=== PATIENT | female | born 1975 | race Two or more races ===

== ENCOUNTER 2016-09-15 23:25 | Inpatient (IN) | payer OTHER ==
[~2016-09-15] VITALS: Ht 165.1 cm; Wt 98.5 kg
[2016-09-15] MEDS ORDERED: VITAMINS (23:44)
[2016-09-15] MEDS ORDERED: CLON0.5T20 PO (23:44)
[2016-09-15] MEDS ORDERED: VENL75CA PO (23:44)
[2016-09-15] MEDS ORDERED: MORPHINE SULFATE 4 MG/ML, 1ML ONE (23:59)
[2016-09-15] MEDS ORDERED: ONDANSETRON 2MG/ML, 2ML ONE (23:59)
[2016-09-15] MEDS ORDERED: KETOROLAC 30 MG/1 ML ONE (23:59)
[2016-09-15] MEDS ORDERED: ACETAMINOPHEN 325 MG TABLET ONE (23:59)
[2016-09-16] MEDS ORDERED: SODIUM CHLORIDE FLUSH 10ML SYR IVF ONE
[2016-09-16] MEDS ORDERED: ACETAMINOPHEN 325 MG TABLET PO ONE
[2016-09-16] MEDS ORDERED: ONDANSETRON 2MG/ML, 2ML IVPush ONE
[2016-09-16] MEDS ORDERED: KETOROLAC 30 MG/1 ML IVPush ONE
[2016-09-16 00:24] LABS: HEMOGLOBIN 11.9 g/dL (11.7-16.4)
[2016-09-16] MEDS: MORPHINE SULFATE 4 MG/ML, 1ML IVPush PRN ×3 (00:29→23:50)
[2016-09-16] MEDS ORDERED: SODIUM CHLORIDE 0.9% 1,000ML IVBOLUS ONE ×3 (00:30→01:30)
[2016-09-16 00:34] LABS: DAU SCREEN DISCLAIMER
[2016-09-16 00:38] LABS: ASPARTATE AMINO TRANSFERASE 17 U/L (15-37); BLOOD UREA NITROGEN 10 mg/dL (7-18)
[2016-09-16] MEDS ORDERED: POTASSIUM CHLORIDE 20 MEQ TAB.ER.PRT ONE (00:47)
[2016-09-16] MEDS ORDERED: CEFTRIAXONE PMX 1GM/50ML 50 ML ONE (00:47)
[2016-09-16] MEDS ORDERED: POTASSIUM CHLORIDE 20 MEQ TAB.ER.PRT PO ONE (01:00)
[2016-09-16] MEDS ORDERED: CEFTRIAXONE PMX 1GM/50ML 50 ML IV ONE (01:00)
[2016-09-16] MEDS ORDERED: SODIUM CHLORIDE 0.9% 1,000 ML IV ONE (02:39)
[2016-09-16] MEDS ORDERED: MORPHINE SULFATE 4 MG/ML, 1ML IVPush PRN (03:00)
[2016-09-16] MEDS ORDERED: ONDANSETRON 2MG/ML, 2ML IVPush PRN (03:00)
[2016-09-16] MEDS ORDERED: MORPHINE SULFATE 4 MG/ML, 1ML ONE (03:03)
[2016-09-16] MEDS ORDERED: OMNIPAQUE 350 MG/ML, 100ML BOTTLE ONE (03:26)
[2016-09-16] MEDS ORDERED: SODIUM CHLORIDE 0.9% 1,000 ML IV SCH (04:09)
[2016-09-16 04:24] VITALS: BP 115/75
[2016-09-16] MEDS ORDERED: BISACODYL 10 MG SUPP PR PRN (04:30)
[2016-09-16] MEDS ORDERED: ACETAMINOPHEN 325 MG TABLET PO PRN (04:30)
[2016-09-16] MEDS ORDERED: ONDANSETRON 2MG/ML, 2ML IVP PRN (04:30)
[2016-09-16] MEDS: CEFTRIAXONE PMX 1GM/50ML 50 ML IV SCH (04:30)
[2016-09-16] MEDS ORDERED: POLYETHYLENE GLYCOL 17 GM PACKET PO PRN (04:30)
[2016-09-16 04:32] VITALS: BP 115/75
[2016-09-16] MEDS: ENOXAPARIN 40 MG/0.4 ML SQ SCH (05:01)
[2016-09-16 05:57] LABS: HEMOGLOBIN 11.4 g/dL (11.7-16.4)
[2016-09-16 06:16] LABS: ASPARTATE AMINO TRANSFERASE 20 U/L (15-37); BLOOD UREA NITROGEN 11 mg/dL (7-18)
[2016-09-16 06:55] VITALS: BP 121/78
[2016-09-16] MEDS: HYDROcodone/APAP 5/325 TABLET PO PRN ×4 (07:46→18:02)
[2016-09-16] MEDS: POTASSIUM CHLORIDE 20 MEQ TAB.ER.PRT PO SCH ×3 (07:46→17:50)
[2016-09-16] MEDS: VENLAFAXINE 75 MG CAP ER PO SCH (07:46)
[2016-09-16] MEDS ORDERED: POTASSIUM CHLORIDE 40 MEQ in SODIUM CHLORIDE 0.9% 1,000 ML IV SCH ×2 (08:30→09:37)
[2016-09-16 14:13] VITALS: BP 118/79
[2016-09-16] MEDS: POTASSIUM CHLORIDE 10 MEQ in SODIUM CHLORIDE 0.9% 1,000 ML IV SCH (17:53)
[2016-09-16 20:00] VITALS: BP 130/84
[2016-09-16 23:35] VITALS: BP 149/86
[2016-09-17 03:10] VITALS: BP 149/83
[2016-09-17] MEDS: HYDROcodone/APAP 5/325 TABLET PO PRN ×3 (03:42→20:56)
[2016-09-17] MEDS: CEFTRIAXONE PMX 1GM/50ML 50 ML IV SCH (04:00)
[2016-09-17] MEDS ORDERED: POTASSIUM CHLORIDE 40 MEQ in SODIUM CHLORIDE 0.9% 1,000 ML IV SCH (04:09)
[2016-09-17] MEDS: ENOXAPARIN 40 MG/0.4 ML SQ SCH (04:30)
[2016-09-17 05:43] LABS: BLOOD UREA NITROGEN 10 mg/dL (7-18)
[2016-09-17] MEDS: POTASSIUM CHLORIDE 10 MEQ in SODIUM CHLORIDE 0.9% 1,000 ML IV SCH ×2 (07:49→20:56)
[2016-09-17 08:00] VITALS: BP 147/93
[2016-09-17] MEDS: VENLAFAXINE 75 MG CAP ER PO SCH (09:00)
[2016-09-17] MEDS: MORPHINE SULFATE 4 MG/ML, 1ML IVPush PRN (10:32)
[2016-09-17 13:55] VITALS: BP 136/87
[2016-09-17 16:00] VITALS: BP 136/87
[2016-09-17 20:14] VITALS: BP 161/91
[2016-09-17 23:29] VITALS: BP 168/92
[2016-09-18 03:40] VITALS: BP 162/108
[2016-09-18] MEDS: CEFTRIAXONE PMX 1GM/50ML 50 ML IV SCH (03:55)
[2016-09-18] MEDS: HYDROcodone/APAP 5/325 TABLET PO PRN ×2 (04:07→10:35)
[2016-09-18] MEDS: ENOXAPARIN 40 MG/0.4 ML SQ SCH (04:08)
[2016-09-18 05:32] LABS: HEMOGLOBIN 10.8 g/dL (11.7-16.4)
[2016-09-18 05:42] LABS: BLOOD UREA NITROGEN 11 mg/dL (7-18)
[2016-09-18 06:52] VITALS: BP 160/107
[2016-09-18] MEDS: VENLAFAXINE 75 MG CAP ER PO SCH (09:00)
[2016-09-18] MEDS: POTASSIUM CHLORIDE 10 MEQ in SODIUM CHLORIDE 0.9% 1,000 ML IV SCH (10:03)
[2016-09-18] MEDS ORDERED: CEFD300C2 PO (10:10)
== END 2016-09-18 14:05 | disposition home or self-care (01) | DRG 871 ==
LOC: ED 09-16 01:44 → EDIP 09-16 02:40 → 5SO 09-16 04:09 → 4WST 09-16 16:55 → DCLOUNGE 09-18 13:55
PROVIDERS: ADMIT Internal Medicine; ATTEND Internal Medicine
PROC: 0T9B70Z Drainage of Bladder with Drainage Device, Via Natural or Artificial Opening (ICD-10-PCS; principal; 2016-09-16)
DX: A41.9 Sepsis, unspecified organism (principal); E43 Unspecified severe protein-calorie malnutrition; N10 Acute pyelonephritis; E87.1 Hypo-osmolality and hyponatremia; E87.2 Acidosis; D75.89 Other specified diseases of blood and blood-forming organs; E87.6 Hypokalemia; N20.0 Calculus of kidney; R74.8 Abnormal levels of other serum enzymes; Z90.49 Acquired absence of other specified parts of digestive tract; F11.10 Opioid abuse, uncomplicated; F15.10 Other stimulant abuse, uncomplicated; Z68.36 Body mass index [BMI] 36.0-36.9, adult
CPT/HCPCS: 36415; 74177; 80048; 80053; 80307; 81001; 83605; 83735; 84132; 84703; 85025; 87040; 87077; 87086; 87186; 96361; 96365; 96375; 96376; J0696; J1650; J1885; J2405; J3480; Q9967; J7030

== ENCOUNTER 2018-08-20 08:59 | Emergency (ER) | payer OTHER ==
[~2018-08-20] VITALS: Ht 162.6 cm; Wt 88.0 kg
[~2018-08-20 08:59] MED LIST: CEFD300C37 PO; CLON0.5T20 PO; VENL75CA PO; VITAMINS
[2018-08-20 09:08] VITALS: BP 156/115
--- NOTE | 2018-08-20 09:39 | NUR ---
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
[2018-08-20 10:03] LABS: HCG UR SG 1.025 (1.003-1.030); MICROSCOPIC NOT IND
--- NOTE | 2018-08-20 10:08 | NUR ---
ROLL THREADER OPERATOR: CALLED FOR ROOM, NO ANSWER
[2018-08-20 10:10] LABS: CULTURE INDICATED? NO
--- NOTE | 2018-08-20 10:21 | NUR ---
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
[2018-08-20] MEDS ORDERED: PERCOCET (16:16)
[2018-08-20] MEDS ORDERED: LISINOPRIL (16:16)
== END 2018-08-20 10:25 | disposition left against medical advice (07) ==
LOC: ED 10:22
DX: N28.9 Disorder of kidney and ureter, unspecified (principal); Z53.21 Procedure and treatment not carried out due to patient leaving prior to being seen by health care provider
CPT/HCPCS: 81003; 81025; 99281

== ENCOUNTER 2020-04-30 00:11 | Emergency (ER) | payer OTHER ==
[~2020-04-30] VITALS: Ht 165.1 cm; Wt 75.0 kg
[~2020-04-30 00:11] MED LIST changes: +LISINOPRIL; +PERCOCET
[2020-04-30 00:13] VITALS: BP 176/103
== END 2020-04-30 00:49 | disposition home or self-care (01) ==
LOC: ED 00:35
DX: I83.013 Varicose veins of right lower extremity with ulcer of ankle (principal); L97.311 Non-pressure chronic ulcer of right ankle limited to breakdown of skin; S81.811D Laceration without foreign body, right lower leg, subsequent encounter; I10 Essential (primary) hypertension; X58.XXXD Exposure to other specified factors, subsequent encounter
CPT/HCPCS: 99281

== ENCOUNTER 2020-10-21 08:31 | Inpatient (IN) | payer OTHER ==
[~2020-10-21] VITALS: Ht 165.1 cm; Wt 89.4 kg
[2020-10-21] MEDS ORDERED: MORPHINE SULFATE 4 MG/ML, 1ML ONE (08:52)
[2020-10-21] MEDS ORDERED: SODIUM CHLORIDE 0.9% 1,000 ML IV ONE ×2 (09:00→09:30)
[2020-10-21] MEDS ORDERED: SODIUM CHLORIDE FLUSH 10ML SYR IVF ONE (09:00)
[2020-10-21] MEDS ORDERED: MORPHINE SULFATE 4 MG/ML, 1ML IVPush PRN (09:00)
--- NOTE | 2020-10-21 09:14 | NUR ---
Pt arrived via EMS from [place] due to usman barrett, pt connected to BP and O2 monitors, placed on gurney and changed independently into gown, IV placed by other facility, IV patent. MIRELLA METZ
[2020-10-21 09:24] LABS: MEAN CORPUSCULAR HEMOGLOBIN 24.9 pg (27.0-34.8); MEAN CORPUSCULAR HGB CONC 32.7 g/dL (32.4-35.8); MEAN PLATELET VOLUME 6.7 fL (7.4-10.4); PLATELET COUNT 338 x10^3/uL (130-400); RED BLOOD COUNT 4.52 x10^6/uL (3.82-5.3); RED CELL DISTRIBUTION WIDTH 20.5 % (9.6-15.2)
[2020-10-21] MEDS ORDERED: SODIUM CHLORIDE FLUSH 10ML SYR IVF PRN (09:30)
[2020-10-21] MEDS ORDERED: hydrALAzine 20 MG/ML, 1ML IVPush PRN (10:00)
[2020-10-21] MEDS ORDERED: morphine SULFATE 10 MG/ML, 1ML IVPush PRN (10:00)
[2020-10-21] MEDS ORDERED: DOCUSATE 100 MG CAPSULE PO PRN (10:00)
[2020-10-21] MEDS ORDERED: PROMETHAZINE 25 MG/ML, 1ML IM PRN (10:00)
[2020-10-21] MEDS ORDERED: ONDANSETRON 2MG/ML, 2ML IVPush PRN (10:00)
[2020-10-21] MEDS ORDERED: POLYETHYLENE GLYCOL 17 GM PACKET PO PRN (10:00)
[2020-10-21] MEDS ORDERED: ONDANSETRON ODT 4 MG PO PRN (10:00)
[2020-10-21] MEDS ORDERED: BISACODYL 10 MG SUPP PR PRN (10:00)
[2020-10-21 10:14] LABS: AMPHETAMINE SCREEN, URINE Negative (Negative); BARBITURATE SCREEN, URINE Negative (Negative); BENZODIAZEPINE SCREEN, URINE Negative (Negative); CANNABINOID SCREEN, URINE Negative (Negative); COCAINE SCREEN, URINE Negative (Negative); METHADONE SCREEN, URINE Negative (Negative); OPIATE SCREEN, URINE Positive (Negative)
--- NOTE | 2020-10-21 10:16 | NUR ---
Report given to Christina ABBOTT
--- NOTE | 2020-10-21 10:18 | NUR ---
Pt up to restroom, ambulatory with steady
[2020-10-21 10:31] LABS: MD YES
[2020-10-21 10:34] LABS: BAND#(MANUAL) 0.25 x10^3/uL; BANDS%(MANUAL) 6 % (0-7); EOS#(MANUAL) 0.08 x10^3/uL (0.0-0.4); EOS% (MANUAL) 2 % (1-7); LYMPH#(MANUAL) 0.33 x10^3/uL (1-3.4); LYMPHS% (MANUAL) 8 % (22-44); MONOS#(MANUAL) 0.25 x10^3/uL (0.3-2.7); MONOS% (MANUAL) 6 % (2-9); SEGS% (MANUAL) 78 % (42-75)
[2020-10-21 10:35] LABS: <PLATELET ESTIMATE> ADEQUATE; <PLT MORPHOLOGY> NORMAL PLT MORPH; ANISOCYTOSIS 1+; HYPOCHROMIA 1+; MICROCYTOSIS 1+; OVALOCYTES 1+
[2020-10-21] MEDS ORDERED: NITR100C56 PO (10:38)
[2020-10-21] MEDS ORDERED: FLUC50TA3 PO (10:38)
[2020-10-21] MEDS ORDERED: LISI2.5T PO (10:38)
[2020-10-21 11:17] VITALS: BP 136/90
[2020-10-21] MEDS: SODIUM CHLORIDE 0.9% 1,000 ML IV SCH (11:38)
[2020-10-21] MEDS: OXYcodone IR 5MG TABLET PO PRN ×2 (11:54→16:58)
[2020-10-21] MEDS: ACETAMINOPHEN 325 MG TABLET PO PRN ×3 (11:54→21:12)
[2020-10-21 14:10] VITALS: BP 136/78
[2020-10-21 16:59] VITALS: BP 145/87
[2020-10-21] MEDS ORDERED: NALOXONE 0.4 MG/ML, 1ML IVPush ONE (17:30)
[2020-10-21] MEDS ORDERED: KETOROLAC 30 MG/1 ML ONE (17:53)
[2020-10-21] MEDS: KETOROLAC 30 MG/1 ML IVPush PRN (17:58)
[2020-10-21] MEDS: PIPERACILLIN/TAZO 3.375 GM in DEXTROSE 5% 50 ML IV SCH (18:12)
[2020-10-21 18:15] VITALS: BP 145/82
[2020-10-21 18:26] LABS: MICROSCOPIC INDICATED
[2020-10-21 20:50] VITALS: BP 128/75
[2020-10-22 00:22] VITALS: BP 119/74
[2020-10-22] MEDS: PIPERACILLIN/TAZO 3.375 GM in DEXTROSE 5% 50 ML IV SCH ×4 (01:11→17:38)
[2020-10-22] MEDS: KETOROLAC 30 MG/1 ML IVPush PRN ×2 (03:36→10:10)
[2020-10-22] MEDS: OXYcodone IR 5MG TABLET PO PRN ×3 (03:37→21:45)
[2020-10-22] MEDS: ACETAMINOPHEN 325 MG TABLET PO PRN ×2 (03:37→10:10)
[2020-10-22] MEDS: SODIUM CHLORIDE 0.9% 1,000 ML IV SCH ×2 (04:27→13:00)
[2020-10-22 05:35] LABS: BASOPHILS % (AUTO) 0 % (0-1); EOSINOPHILS % (AUTO) 3 % (1-7); LYMPHOCYTES % (AUTO) 11 % (22-44); MEAN CORPUSCULAR HEMOGLOBIN 24.5 pg (27.0-34.8); MONOCYTES % (AUTO) 5 % (2-9); NEUTROPHILS % (AUTO) 81 % (42-75); PLATELET COUNT 279 x10^3/uL (130-400); RED BLOOD COUNT 4.32 x10^6/uL (3.82-5.3); RED CELL DISTRIBUTION WIDTH 20.4 % (9.6-15.2)
[2020-10-22 05:36] LABS: MD NO
[2020-10-22 05:46] LABS: ANION GAP 8 mmol/L (5-15); CALCIUM 7.6 mg/dL (8.5-10.1); CHLORIDE 110 mmol/L (98-107)
[2020-10-22 05:56] LABS: ALANINE AMINOTRANSFERASE 94 U/L (12-78); ALKALINE PHOSPHATASE 201 U/L (45-117); BILIRUBIN,TOTAL 0.3 mg/dL (0.2-1.0); CHOLESTEROL, TOTAL 128 mg/dL (140-239); CREATININE 0.92 mg/dL (0.55-1.02); HDL CHOL % 34 % (28-40); HDL CHOLESTEROL (DIRECT) 43 mg/dL (40-60); LDL CHOLESTEROL,CALCULATED 73 mg/dL (54-169); LDL/HDL RATIO 1.7 (0.5-3.0); TOTAL PROTEIN 7.2 g/dL (6.4-8.2); TRIGLYCERIDES 59 mg/dL (50-200); VLDL CHOLESTEROL 12 mg/dL (0-25)
[2020-10-22 06:50] VITALS: BP 131/81
[2020-10-22] MEDS ORDERED: CEFTRIAXONE 2 GM in DEXTROSE 5% 50 ML IVPB SCH (07:00)
[2020-10-22] MEDS: LISINOPRIL 10 MG TABLET PO SCH (08:58)
[2020-10-22 10:59] LABS: HCG UR SG 1.023 (1.003-1.030)
[2020-10-22] MEDS ORDERED: SUCCINYLCHOLINE 20 MG/ML, 10ML ONE (11:18)
[2020-10-22] MEDS ORDERED: ROCURONIUM 10MG/ML,5ML ONE (11:18)
[2020-10-22] MEDS ORDERED: DEXAMETHASONE 4 MG/ML, 1ML ONE (11:18)
[2020-10-22] MEDS ORDERED: CEFAZOLIN 1,000 MG ONE (11:18)
[2020-10-22] MEDS ORDERED: SUGAMMADEX 200 MG/2 ML IVPush ONE (11:18)
[2020-10-22] MEDS ORDERED: PROPOFOL 10 MG/ML, 20ML ONE (11:18)
[2020-10-22 12:45] VITALS: BP 124/81
[2020-10-22] MEDS ORDERED: MIDAZOLAM 1 MG/ML, 2ML ONE (14:17)
[2020-10-22] MEDS ORDERED: OMNIPAQUE 350 MG/ML, 50 ML BOTTLE ONE (14:58)
[2020-10-22] MEDS ORDERED: PROMETHAZINE 25 MG/ML, 1ML IV PRN (15:00)
[2020-10-22] MEDS ORDERED: LABETALOL 5MG/ML, 20ML IV PRN (15:00)
[2020-10-22] MEDS ORDERED: KETOROLAC 30 MG/1 ML IV PRN (15:00)
[2020-10-22] MEDS ORDERED: HYDROmorphone 1 MG/ML, 1ML INJ IV PRN (15:00)
[2020-10-22] MEDS ORDERED: METOCLOPRAMIDE 5 MG/ML, 2ML IV PRN (15:00)
[2020-10-22] MEDS ORDERED: MEPERIDINE/PF 25MG/0.5ML IVPush PRN (15:00)
[2020-10-22] MEDS ORDERED: ONDANSETRON 2MG/ML, 2ML IVPush PRN (15:00)
[2020-10-22] MEDS ORDERED: hydrALAzine 20 MG/ML, 1ML IV PRN (15:00)
[2020-10-22] MEDS ORDERED: DIAZEPAM 5 MG/ML, 2ML IV PRN ×2 (15:00)
[2020-10-22] MEDS ORDERED: FENTANYL PF 100 MCG/2ML IV PRN (15:00)
[2020-10-22] MEDS ORDERED: OXYcodone 5 MG/5 ML ORAL.SOL UDC PO PRN (15:00)
[2020-10-22] MEDS ORDERED: ALBUTEROL SULFATE 2.5 MG/3 ML NPPB PRN (15:00)
[2020-10-22] MEDS ORDERED: MEPERIDINE/PF 25MG/ML,1ML ONE (16:13)
[2020-10-22 16:48] VITALS: BP 134/87
[2020-10-22 19:09] VITALS: BP 146/97
[2020-10-23] MEDS: PIPERACILLIN/TAZO 3.375 GM in DEXTROSE 5% 50 ML IV SCH ×3 (00:08→12:51)
[2020-10-23 00:14] VITALS: BP 144/88
[2020-10-23] MEDS: ACETAMINOPHEN 325 MG TABLET PO PRN (03:43)
[2020-10-23] MEDS: KETOROLAC 30 MG/1 ML IVPush PRN (03:43)
[2020-10-23] MEDS: OXYcodone IR 5MG TABLET PO PRN ×2 (03:43→09:40)
[2020-10-23 05:49] LABS: BASOPHILS % (AUTO) 0 % (0-1); EOSINOPHILS % (AUTO) 1 % (1-7); LYMPHOCYTES % (AUTO) 17 % (22-44); MEAN CORPUSCULAR HEMOGLOBIN 24.5 pg (27.0-34.8); MEAN CORPUSCULAR HGB CONC 32.1 g/dL (32.4-35.8); MEAN PLATELET VOLUME 7.1 fL (7.4-10.4); MONOCYTES % (AUTO) 6 % (2-9); NEUTROPHILS % (AUTO) 76 % (42-75); PLATELET COUNT 241 x10^3/uL (130-400); RED BLOOD COUNT 4.09 x10^6/uL (3.82-5.3); RED CELL DISTRIBUTION WIDTH 20.2 % (9.6-15.2)
[2020-10-23 05:52] LABS: MD NO
[2020-10-23 05:58] LABS: ALBUMIN 2.9 g/dL (3.4-5.0); ANION GAP 6 mmol/L (5-15); CALCIUM 7.5 mg/dL (8.5-10.1); CHLORIDE 107 mmol/L (98-107)
[2020-10-23 06:01] LABS: ALANINE AMINOTRANSFERASE 77 U/L (12-78); ALKALINE PHOSPHATASE 388 U/L (45-117); BILIRUBIN,TOTAL 0.5 mg/dL (0.2-1.0); CREATININE 1.06 mg/dL (0.55-1.02)
[2020-10-23 08:30] VITALS: BP 146/91
[2020-10-23] MEDS ORDERED: LACTATED RINGERS 1,000 ML IV SCH (08:30)
[2020-10-23] MEDS ORDERED: POTASSIUM CHLORIDE 20 MEQ TAB.ER.PRT PO ONE (08:30)
[2020-10-23] MEDS: LISINOPRIL 10 MG TABLET PO SCH (08:31)
[2020-10-23] MEDS ORDERED: IBUP-1221 PO (13:05)
[2020-10-23] MEDS ORDERED: CEFD300C37 PO (13:05)
[2020-10-23 13:16] VITALS: BP 137/88
== END 2020-10-23 15:00 | disposition home or self-care (01) | DRG 660 ==
LOC: ED 08:48 → EDIP 09:21 → 4NE 10:54 → DCLOUNGE 10-23 14:53
PROVIDERS: ADMIT Hospitalist; ATTEND Hospitalist
PROC: 0T768DZ Dilation of Right Ureter with Intraluminal Device, Via Natural or Artificial Opening Endoscopic (ICD-10-PCS; 2020-10-22)
PROC: 0TC68ZZ Extirpation of Matter from Right Ureter, Via Natural or Artificial Opening Endoscopic (ICD-10-PCS; 2020-10-22)
PROC: 0TP98DZ Removal of Intraluminal Device from Ureter, Via Natural or Artificial Opening Endoscopic (ICD-10-PCS; 2020-10-22)
PROC: 0TCB8ZZ Extirpation of Matter from Bladder, Via Natural or Artificial Opening Endoscopic (ICD-10-PCS; principal; 2020-10-22 14:00)
DX: T83.592A Infection and inflammatory reaction due to indwelling ureteral stent, initial encounter (principal); N13.6 Pyonephrosis; Z20.822 Contact with and (suspected) exposure to COVID-19; F17.210 Nicotine dependence, cigarettes, uncomplicated; I10 Essential (primary) hypertension; N21.0 Calculus in bladder; Y83.1 Surgical operation with implant of artificial internal device as the cause of abnormal reaction of the patient, or of later complication, without mention of misadventure at the time of the procedure; Z88.8 Allergy status to other drugs, medicaments and biological substances; Z90.49 Acquired absence of other specified parts of digestive tract; Z79.899 Other long term (current) drug therapy; Z79.891 Long term (current) use of opiate analgesic; Z79.01 Long term (current) use of anticoagulants
CPT/HCPCS: 36415; 74018; 74176; 76000; 76700; 80053; 80061; 80307; 81001; 81025; 82360; 83036; 83735; 84100; 84443; 85025; 86704; 86705; 86706; 86708; 86709; 86803; 87040; 87086; 87340; 87635; 88300; 96374; 99285; C2630; G0378; J0690; J1100; J1885; J2175; J2250; J2310; J2543; J2704; Q0162; Q9967; C1758; C1769; C2617; J0330; J2270; J7030; J7120